=== PATIENT | male | born 1985 | race Caucasian/White ===

== ENCOUNTER 2019-04-18 15:28 | Emergency (ER) | payer SELFPAY ==
[~2019-04-18] VITALS: Ht 180.3 cm; Wt 90.7 kg
--- NOTE | 2019-04-18 15:28 | NUR ---
PT BROUGHT IN BY AMBULANCE ALS TO ER BED 10
[2019-04-18 15:32] VITALS: BP 112/76
--- NOTE | 2019-04-18 15:37 | NUR ---
SEIZURE PRECAUTIONS IN PLACE
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
--- NOTE | 2019-04-18 16:06 | NUR ---
DR BANERJEE AT BEDSIDE
[2019-04-18] MEDS ORDERED: cefTRIAXone 250 MG in LIDOCAINE MPF 1% 0.9 ML IM ONE (16:20)
[2019-04-18] MEDS ORDERED: AZITHROMYCIN 250 MG TAB PO ONE (16:20)
[2019-04-18] MEDS ORDERED: HYDROcodone/APAP 5/325 MG 1 TAB TAB PO ONE (16:20)
[2019-04-18] MEDS ORDERED: cefTRIAXone 250 MG VIAL ONE (16:26)
[2019-04-18] MEDS ORDERED: LIDOCAINE MPF 1% 5 ML ONE (16:27)
--- NOTE | 2019-04-18 16:34 | NUR ---
PT REFUSING MEDICATIONS AT THIS TIME
--- NOTE | 2019-04-18 16:36 | NUR ---
SPOKE WITH DR BANERJEE, INSTRUCTED HIM THAT UNABLE TO OBTAIN IV. PER DR GARCIA, PT TO TAKE PO MEDICATIONS AND IM, NO IV
--- NOTE | 2019-04-18 17:08 | NUR ---
PT REFUSING ALL MEDICATIONS AT THIS TIME. VERBALLY CUSING AT STAFF AND OFFICERS. PT HANDCUFFED TO BED BY ANISHA
[2019-04-18] MEDS ORDERED: KETOROLAC 60 MG/2 ML VIAL IM ONE (17:10)
--- NOTE | 2019-04-18 17:23 | NUR ---
PT NOW CALM IN BEHAVIOR. SAID YES TO ROCEPHIN AND TORADOL IM
[2019-04-18 17:31] VITALS: BP 112/69
--- NOTE | 2019-04-18 17:33 | NUR ---
PT HR 100, PT RESTING IN BED
[2019-04-18] MEDS ORDERED: PHENYTOIN 100 MG/4 ML UDC PO ONE (17:50)
--- NOTE | 2019-04-18 17:55 | NUR ---
NADR, PAIN 10/10 PER PATIENT. REQUESTING DILAUDID IVP
--- NOTE | 2019-04-18 17:56 | NUR ---
PT REFUSING IMNNIE KANG
--- NOTE | 2019-04-18 18:00 | NUR ---
Patient does not wish to proceed with medical care recommended by DR BANERJEE. Patient given information related to possible complications, up to and including , which could occur as a result of leaving hospital at this time. Patient verbalizes understanding of risks involved leaving against medical advice. Patient has signed AMA form. PT LEAVING IN CUSTONDY WITH STEVE
[2019-04-19 06:07] LABS: HEPATITIS B SURFACE ANTIGEN Negative (Negative)
== END 2019-04-18 18:00 ==
LOC: MED 15:28
DX: R56.9 Unspecified convulsions (principal); T74.21XA Adult sexual abuse, confirmed, initial encounter; M54.6 Pain in thoracic spine; K62.5 Hemorrhage of anus and rectum; K62.89 Other specified diseases of anus and rectum
CPT/HCPCS: 36415; 80185; 86592; 86702; 86803; 87340; 96372; 99283; J0696; J1885; J2001